=== PATIENT | female | born 1990 | race Caucasian/White ===

== ENCOUNTER 2016-11-30 04:08 | Emergency (ER) | payer OTHER ==
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
--- NOTE | 2016-11-30 06:56 | ED ORDER SUMMARY ---
..... Patient: MEHREEN PEDRO OrderSheet [facility] VisitID: [id number] [address] [place] [address] 26y, F Registration Date/Time: 11/30/2016 ORDER SHEET Weight: 45.3 kg (estimated) Allergies: No Known Drug Allergy GENERAL ORDERS: CBC w Diff Urgent (04:39 11/30/2016 Bhargav Nelson) (Ack 4:42 LMuller) (5:39 LMuller) CMP Urgent (04:39 11/30/2016 Bhargav Nelson) (Ack 4:42 LMuller) (5:39 LMuller) UA-Culture if indicated Urgent (04:39 11/30/2016 Bhargav Nelson) (Ack 4:42 LMuller) (5:44 HOShaughkeenany R.N.) Urine Drug Screen Urgent (04:39 11/30/2016 Bhargav Nelson) (Ack 4:42 LMuller) (5:44 HOShaughnessy R.N.) Serum Quantitative Urgent (04:39 11/30/2016 Bhargav Nelson) (Ack 4:42 LMuller) (5:39 LMuller) HIV I and II Urgent (04:39 11/30/2016 Bhargav Nelson) (Ack 4:42 LMuller) (5:39 LMuller) Hepatitis Evaluation VII Urgent (04:39 11/30/2016 Bhargav Nelson) (Ack 4:42 LMuller) (5:39 LMuller) - (sane nurse consult) (04:40 11/30/2016 Bhargav Nelson) (Ack 4:42 LMuller) (4:45 LMuller) MEDICATION ORDERS: Ceftriaxone IM 250 mg (NOW) (06:53 11/30/2016 Bhargav Nelson) (7:04 HOSwendiughlance R.N.) Lidocaine Injection 1% (give with ceftriaxone) (06:53 11/30/2016 Bhargav Nelson) (7:04 HOSwendiughlance R.N.) Azithromycin PO 1000 mg (NOW) (06:53 11/30/2016 Bhargav Nelson) (7:05 HOShaughkeenany R.NQuinn) Flagyl PO 2000 mg (NOW) (07:41 11/30/2016 Bhargav Nelson) (Ack 7:41 MWinterbarb R.N.) (7:49 Ann R.Ute) IV FLUIDS: ORDER SHEET NOTES: [Electronically signed by Mary Hyatt R.N. (10:44 11/30/2016)] [Electronically signed by Arnaldo Reyna Dr. (01:34 12/07/2016)] [Electronically locked/signed by Mary Hyatt R.N. (10:44 11/30/2016)]
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
--- NOTE | 2016-11-30 06:56 | ED ORDER SUMMARY ---
..... Patient: MEHREEN PEDRO OrderSheet [facility] VisitID: [id number] [address] [place] [address] 26y, F Registration Date/Time: 11/30/2016 ORDER SHEET Weight: 45.3 kg (estimated) Allergies: No Known Drug Allergy GENERAL ORDERS: CBC w Diff Urgent (04:39 11/30/2016 Bhargav Nelson) (Ack 4:42 LMuller) (5:39 LMuller) CMP Urgent (04:39 11/30/2016 Bhargav Nelson) (Ack 4:42 LMuller) (5:39 LMuller) UA-Culture if indicated Urgent (04:39 11/30/2016 Bhargav Nelson) (Ack 4:42 LMuller) (5:44 HOShaughkeenany R.N.) Urine Drug Screen Urgent (04:39 11/30/2016 Bhargav Nelson) (Ack 4:42 LMuller) (5:44 HOShaughnessy R.N.) Serum Quantitative Urgent (04:39 11/30/2016 Bhargav Nelson) (Ack 4:42 LMuller) (5:39 LMuller) HIV I and II Urgent (04:39 11/30/2016 Bhargav Nelson) (Ack 4:42 LMuller) (5:39 LMuller) Hepatitis Evaluation VII Urgent (04:39 11/30/2016 Bhargav Nelson) (Ack 4:42 LMuller) (5:39 LMuller) - (sane nurse consult) (04:40 11/30/2016 Bhargav Nelson) (Ack 4:42 LMuller) (4:45 LMuller) MEDICATION ORDERS: Ceftriaxone IM 250 mg (NOW) (06:53 11/30/2016 Bhargav Nelson) (7:04 HOSwendiughlance R.N.) Lidocaine Injection 1% (give with ceftriaxone) (06:53 11/30/2016 Bhargav Nelson) (7:04 HOSwendiughlance R.N.) Azithromycin PO 1000 mg (NOW) (06:53 11/30/2016 Bhargav Nelson) (7:05 HOShaughkeenany R.NQuinn) Flagyl PO 2000 mg (NOW) (07:41 11/30/2016 Bhargav Nelson) (Ack 7:41 MWinterbarb R.N.) (7:49 Ann R.Ute) IV FLUIDS: ORDER SHEET NOTES: [Electronically signed by Mary Hyatt R.N. (10:44 11/30/2016)] [Electronically signed by Arnaldo Reyna Dr. (01:34 12/07/2016)] [Electronically locked/signed by Mary Hyatt R.N. (10:44 11/30/2016)]
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
--- NOTE | 2016-12-07 01:35 | ED MED RECONCILIATION SUMMARY ---
Patient: MEHREEN PEDRO Medication Reconciliation Report [facility] VisitID: [id number] [address] [place] [address] 26y, F Registration Date/Time: 11/30/2016 Weight: 45.3 kg Height/Length: 61 in. BMI: 18.9 ALLERGIES: No Known Drug Allergy The patient's Home Medications are listed below: Not obtained. The source(s) of the original Home Medication information: Not obtained. The following Medications were given to the patient in the Emergency Department: Ceftriaxone [IM] IM 250 mg, administered: 11/30/2016 7:04:00 AM Lidocaine [Injection] Injection 1 %, administered: 11/30/2016 7:04:00 AM Azithromycin [PO] PO 1000 mg, administered: 11/30/2016 7:05:00 AM Flagyl [PO] PO 2000 mg, administered: 11/30/2016 7:39:00 AM The following Medications were prescribed to the patient: None.
--- NOTE | 2016-12-07 01:35 | ED MAR SUMMARY ---
..... Medication Administration Record [facility] [address] [address] Patient: MEHREEN PEDRO Visit ID: [id number] 26y, F Weight: 45.3 kg Height/Length: 61 in BMI: 18.9 ALLERGIES: No Known Drug Allergy Given 07:04 11/30/2016 Ghassan Liriano [facility] Medication Administered: CEFTRIAXONE [IM], Dose: 250 mg IM. Medication Ordered: Ceftriaxone IM 250 mg (NOW). Given 07:04 11/30/2016 Ghassan Liriano [facility] Medication Administered: LIDOCAINE [INJECTION], Dose: 1 % Injectable Injection. Medication Ordered: Lidocaine Injection 1% (give with ceftriaxone). Given 07:11/30/2016 Ghassan Liriano [facility] Medication Administered: AZITHROMYCIN [PO], Dose: 1000 mg Tablets PO. Medication Ordered: Azithromycin PO 1000 mg (NOW). Given 07:39 11/30/2016 Mary Hyatt [facility] Medication Administered: FLAGYL [PO] (METRONIDAZOLE), Dose: 2000 mg PO. Medication Ordered: Flagyl PO 2000 mg (NOW).
--- NOTE | 2016-12-07 01:35 | ED MED RECONCILIATION SUMMARY ---
Patient: MEHREEN PEDRO Medication Reconciliation Report [facility] VisitID: [id number] [address] [place] [address] 26y, F Registration Date/Time: 11/30/2016 Weight: 45.3 kg Height/Length: 61 in. BMI: 18.9 ALLERGIES: No Known Drug Allergy The patient's Home Medications are listed below: Not obtained. The source(s) of the original Home Medication information: Not obtained. The following Medications were given to the patient in the Emergency Department: Ceftriaxone [IM] IM 250 mg, administered: 11/30/2016 7:04:00 AM Lidocaine [Injection] Injection 1 %, administered: 11/30/2016 7:04:00 AM Azithromycin [PO] PO 1000 mg, administered: 11/30/2016 7:05:00 AM Flagyl [PO] PO 2000 mg, administered: 11/30/2016 7:39:00 AM The following Medications were prescribed to the patient: None.
--- NOTE | 2016-12-07 01:35 | ED MAR SUMMARY ---
..... Medication Administration Record [facility] [address] [place] [address] Patient: MEHREEN PEDRO Visit ID: [id number] 26y, F Weight: 45.3 kg Height/Length: 61 in BMI: 18.9 ALLERGIES: No Known Drug Allergy Given 07:04 11/30/2016 Ghassan Liriano [facility] Medication Administered: CEFTRIAXONE [IM], Dose: 250 mg IM. Medication Ordered: Ceftriaxone IM 250 mg (NOW). Given 07:04 11/30/2016 Ghassan Liriano [facility] Medication Administered: LIDOCAINE [INJECTION], Dose: 1 % Injectable Injection. Medication Ordered: Lidocaine Injection 1% (give with ceftriaxone). Given 07:11/30/2016 Ghassan Liriano [facility] Medication Administered: AZITHROMYCIN [PO], Dose: 1000 mg Tablets PO. Medication Ordered: Azithromycin PO 1000 mg (NOW). Given 07:39 11/30/2016 Mary Hyatt [facility] Medication Administered: FLAGYL [PO] (METRONIDAZOLE), Dose: 2000 mg PO. Medication Ordered: Flagyl PO 2000 mg (NOW).
== END 2016-11-30 07:50 | disposition home or self-care (01) ==
LOC: ED SRH 04:08
DX: T74.21XA Adult sexual abuse, confirmed, initial encounter (principal); Z20.2 Contact with and (suspected) exposure to infections with a predominantly sexual mode of transmission
CPT/HCPCS: 90004; 90073; 90075; 90077; 90078; 90100; 90197; 90364; 92760; 92761; 92762; 92763; 92764; 92765; 92766; 92767; 92863; 95059; 99777